=== PATIENT | male | born 1975 | race Caucasian/White ===

== ENCOUNTER 2016-04-27 21:56 | Emergency (ER) | payer MEDICAID ==
[2016-04-27] MEDS ORDERED: KETOROLAC 30 MG/1 ML SDV IM ONE (22:43)
--- NOTE | 2016-04-27 22:45 | EDPHY ---
H & P Stated Complaint: tripped, fell onto bucket; c/o R rib pain Time Seen by Provider: 04/27/16 22:23 HPI/ROS: HPI The patient presents with right-sided chest wall pain which began about an hour and half prior to presentation. He was doing some construction at his house and tripped and fell head 1st onto a 5 gal plastic pocket with his right chest hitting the room and his right arm hitting the ground. He has had progressive, sharp, pleuritic pain ever since which is severe. It is making it hard for him to breathe.. REVIEW OF SYSTEMS Constitutional: No fever, no chills. Eyes: No discharge. ENT: No sore throat. Cardiovascular: No chest pain, no palpitations. Respiratory: No cough, no shortness of breath. Gastrointestinal: No abdominal pain, no vomiting. Genitourinary: No hematuria. Musculoskeletal: No back pain. Skin: No rashes. Neurological: No headache. PMHx: Healthy, no diabetes, no hypertension Soc Hx: Lives with roommate PHYSICAL General Appearance: Alert, uncomfortable appearing Eyes: Pupils equal and round no pallor or injection ENT, Mouth: Mucous membranes moist Respiratory: There are no retractions, lungs are clear to auscultation Chest wall: There is abrasion to the lateral right chest at approximately T4 in the midaxillary Lied, there is tenderness throughout his ribs anteriorly to the midaxillary line, there is no flail chest Cardiovascular: Regular rate and rhythm Gastrointestinal: Abdomen is soft and non-tender, no masses, bowel sounds normal Neurological: A&O, moves all extremities Skin: Warm and dry, no rashes Musculoskeletal: Neck is supple non tender Extremities: symmetrical, full range of motion Psychiatric: Patient is oriented X 3, there is no agitation Source: Patient - Personal History Current Tetanus/Diphtheria Vaccine: Yes Current Tetanus Diphtheria and Acellular Pertussis (TDAP): Yes - Medical/Surgical History Hx Asthma: No Hx Chronic Respiratory Disease: No Hx Diabetes: No Hx Cardiac Disease: No Hx Renal Disease: No Hx Cirrhosis: No Hx Alcoholism: No Hx HIV/AIDS: No Hx Splenectomy or Spleen Trauma: No Other PMH: Kidney stones - Social History Smoking Status: Current every day smoker Constitutional: Initial Vital Signs Temperature (C) 36.5 C 04/27/16 21:57 Heart Rate 105 H 04/27/16 21:57 Respiratory Rate 16 04/27/16 21:57 O2 Sat (%) 95 04/27/16 21:57 O2 Delivery Mode Room Air Allergies/Adverse Reactions: No Known Allergies Allergy (Unverified 08/11/14 02:02) Home Medications: Medication Instructions Recorded Hydrocodone/APAP 5/325 [[place] 1 - 2 tab PO Q6H PRN #15 tab 04/27/16 5/325 (*)] Naproxen 500 mg PO BID #30 tablet 04/27/16 Medical Decision Making - Diagnostics Imaging: Chest x-ray with dedicated right rib views shows fractures of the 7th, 8th, 9th ribs, interpreted by me, radiology interpretation is pending. ED Course/Re-evaluation: The patient was given morphine for his pain in the emergency room with improvement in his symptoms. X-ray reveals several rib fractures without pneumothorax. He will be discharged with pain medication and follow up with his primary care doctor. He is to return to the emergency room if he is worse in any way. Differential Diagnosis: This is a 41-year-old man who presents after a fall earlier tonight, hitting his right side on a bucket. He is now complaining of chest pain and shortness of breath. Differential diagnosis includes pneumothorax, pulmonary contusion, rib fractures. - Data Points Medications Given: Discontinued Medications Hydrocodone Bitart/Acetaminophen ([place] 5/325mg Prepack#6) 1 btl TAKEHOME EDNOW ONE Stop: 04/27/16 23:25 Last Admin: 04/27/16 23:30 Dose: 1 btl Ketorolac Tromethamine (Toradol) 30 mg IM EDNOW ONE Stop: 04/27/16 22:44 Last Admin: 04/27/16 22:59 Dose: 30 mg Morphine Sulfate (Morphine) 6 mg IM EDNOW ONE Stop: 04/27/16 22:44 Last Admin: 04/27/16 22:59 Dose: 6 mg Departure - Departure Disposition: Home, Routine, Self-Care Clinical Impression: Right rib fracture Qualifiers: Encounter type: initial encounter Rib fracture type: multiple ribs Fracture type: closed Qualified Code(s): S22.41XA - Multiple fractures of ribs, right side, initial encounter for closed fracture Condition: Good Instructions: Narcotic-Analgesic/Acetaminophen (By mouth), Rib Fracture (ED) Referrals: [facility] [Outside] - As per Instructions Stand Alone Forms: Work Excuse Prescriptions: Hydrocodone/APAP 5/325 [[place] 5/325 (*)] 1 - 2 tab PO Q6H PRN #15 tab PRN Reason: Pain, Breakthrough Naproxen 500 mg PO BID #30 tablet
[2016-04-27 22:53] VITALS: BP 146/117; PULSE 106; RESP 18; TEMP 99.1; O2SAT 96
[2016-04-27] MEDS ORDERED: HYDROCOD/APAP 5/325 PREPACK#6 BTL TAKEHOME ONE (23:24)
== END 2016-04-27 23:31 | disposition home or self-care (01) ==
DX: S22.41XA Multiple fractures of ribs, right side, initial encounter for closed fracture (principal); F17.200 Nicotine dependence, unspecified, uncomplicated; W01.198A Fall on same level from slipping, tripping and stumbling with subsequent striking against other object, initial encounter; Y92.009 Unspecified place in unspecified non-institutional (private) residence as the place of occurrence of the external cause; Y99.8 Other external cause status; Y93.H3 Activity, building and construction
CPT/HCPCS: J1885

== ENCOUNTER 2017-06-17 19:41 | Emergency (ER) | payer MEDICAID ==
--- NOTE | 2017-06-17 19:45 | EDPHY ---
H & P Time Seen by Provider: 06/17/17 19:45 HPI/ROS: CHIEF COMPLAINT: Right flank pain, history of nephrolithiasis HISTORY OF PRESENT ILLNESS: The patient presents to the ED with several days of intermittent mild right flank pain which has become acutely severe over the past day. The patient denies any hematuria but does report prior history of kidney stone x2. The patient has not required surgical intervention for his stones in the past. The patient denies additional complaints of cough, congestion or chest pain. The patient currently rates his pain as an 8/10. REVIEW OF SYSTEMS: A comprehensive 10 point review of systems is otherwise negative aside from elements mentioned in the history of present illness. Source: Patient Exam Limitations: No limitations - Medical/Surgical History Hx Asthma: No Hx Chronic Respiratory Disease: No Hx Diabetes: No Hx Cardiac Disease: No Hx Renal Disease: No Hx Cirrhosis: No Hx Alcoholism: No Hx HIV/AIDS: No Hx Splenectomy or Spleen Trauma: No Other PMH: Kidney stones - Social History Smoking Status: Current every day smoker - Physical Exam Exam: General Appearance: Alert, mild discomfort Eyes: Pupils equal and round no pallor or injection ENT, Mouth: Mucous membranes moist Respiratory: There are no retractions, lungs are clear to auscultation Cardiovascular: Regular rate and rhythm Gastrointestinal: Right-sided mid abdominal pain Back: Right flank pain Neurological: A&O, normal motor function, normal sensory exam, normal cranial nerves Skin: Warm and dry, no rashes Musculoskeletal: Neck is supple nontender Extremities: symmetrical, full range of motion Constitutional: Initial Vital Signs Heart Rate 84 06/17/17 19:47 Respiratory Rate 18 06/17/17 19:47 Blood Pressure 182/108 H 06/17/17 19:47 O2 Sat (%) 100 06/17/17 19:47 O2 Delivery Mode Room Air Allergies/Adverse Reactions: No Known Allergies Allergy (Unverified 08/11/14 02:02) Home Medications: Medication Instructions Recorded Ondansetron Odt [Zofran Odt] 4 mg PO Q4PRN PRN #20 tab 06/17/17 Tamsulosin HCl [Flomax] 0.4 mg PO DAILY PRN #5 cap 06/17/17 oxyCODONE/APAP 5/325 [Percocet 1 - 2 tab PO Q6-8PRN PRN #20 tab 06/17/17 5/325 (RX)] Medical Decision Making - Diagnostics Imaging Results: Imaging Impressions Abdomen/Pelvis CT 06/17/17 20:27 Impression: 1. Moderate right hydroureteronephrosis secondary to a 4-mm obstructing calculus in the distal right ureterovesical junction. 2. Additional calyceal calculi right kidney. 3. Nonobstructing left nephrolithiasis. Attention: This CT examination is specifically designed to evaluate patients who are clinically suspected of having acute obstructive uropathy. This examination does not use radiographic contrast, and as such, provides only a limited evaluation of the abdomen, pelvis, and retroperitoneum. If there is further clinical suspicion for pathological conditions other than obstructive uropathy, a complete CT evaluation of the abdomen and pelvis utilizing intravenous, oral, and rectal contrast should be considered. Findings and recommendations discussed with Emergency Department physician, Devendra Sena M.D., at 2052 hours, on June 17, 2017. Final report concurs with initial preliminary interpretation. CT abdomen pelvis without IV contrast: Bilateral nephrolithiasis noted, right hydronephrosis secondary to a 3.5 mm distal right calculus. Images reviewed by myself and discussed with radiologist Dr. Castillo. Imaging: Discussed imaging studies w/ banquet server on call Radiologist, I viewed and interpreted images myself Procedures: Procedure: Limited abdominal ultrasound Indication: Right flank pain Findings: Suggestion of mild hydronephrosis noted in the right kidney. No obvious calcification noted. Images stored in ultrasound database. Study performed and interpreted by myself, Dr. Devendra Sena Impression: Mild right hydronephrosis ED Course/Re-evaluation: The patient presents to the ED with right flank pain. The patient reports a prior history of renal colic. The patient had an IV established. I did verify a normal creatinine. The patient received 30 mg of IV Toradol. Bedside ultrasound does suggest hydronephrosis involving the right kidney. The patient was evaluated again at 9:00 p.m.. He is continuing to have mild pain but has had marked improvement of his symptoms. He will be given 1 mg of IV Dilaudid. The patient is also given 0.5 mg of Flomax. The patient will be discharged home with customary renal colic aftercare instructions. He is given a prescription for Zofran, Percocet and Flomax. He is given a urinary strainer and the contact number of our on-call urologist. Differential Diagnosis: Differential diagnosis considered includes nephrolithiasis, ureterolithiasis, pyelonephritis, renal failure, myofascial strain, pancreatitis - Data Points Laboratory Results: Laboratory Results 06/17/17 19:30 06/17/17 19:52 06/17/17 06/17/17 06/17/17 20:55 19:52 19:52 WBC RBC Hgb Hct MCV MCH MCHC RDW Plt Count MPV Neut % (Auto) Lymph % (Auto) [place] % (Auto) Eos % (Auto) Baso % (Auto) Nucleat RBC Rel Count Absolute Neuts (auto) Absolute Lymphs (auto) Absolute Monos (auto) Absolute Eos (auto) Absolute Basos (auto) Absolute Nucleated RBC Immature Gran % Immature Gran # Sodium 140 mEq/L mEq/L (135-145) Potassium 3.6 mEq/L mEq/L (3.5-5.2) Chloride 97 mEq/L mEq/L (97-110) Carbon Dioxide 19 mEq/l L mEq/l (22-31) Anion Gap 24 mEq/L H mEq/L (8-16) BUN 8 mg/dL mg/dL (7-23) Creatinine 0.8 mg/dL mg/dL (0.7-1.3) Estimated GFR > 60 Glucose 135 mg/dL H mg/dL (70-100) Calcium 10.9 mg/dL H mg/dL (8.5-10.4) Phosphorus 1.8 mg/dL L mg/dL (2.5-4.5) Total Bilirubin 0.8 mg/dL mg/dL (0.1-1.4) Conjugated Bilirubin 0.5 mg/dL mg/dL (0.0-0.5) Unconjugated Bilirubin 0.3 mg/dL mg/dL (0.0-1.1) AST 177 IU/L H IU/L (17-59) ALT 123 IU/L H IU/L (21-72) Alkaline Phosphatase 109 IU/L IU/L (38-126) Total Protein 8.5 g/dL H g/dL (6.3-8.2) Albumin 5.4 g/dL H g/dL (3.5-5.0) Lipase 206 IU/L IU/L (23-300) Urine Color PALE YELLOW Urine Appearance HAZY Urine pH 8.0 H (5.0-7.5) Ur Specific [place] 1.008 (1.002-1.030) Urine Protein NEGATIVE (NEGATIVE) Urine Ketones 1+ H (NEGATIVE) Urine Blood 3+ H (NEGATIVE) Urine Nitrate NEGATIVE (NEGATIVE) Urine Bilirubin NEGATIVE (NEGATIVE) Urine Urobilinogen NEGATIVE EU EU (0.2-1.0) Ur Leukocyte Esterase NEGATIVE (NEGATIVE) Urine RBC 50-182 /hpf H /hpf (0-3) Urine WBC 25-50 /hpf H /hpf (0-3) Ur Epithelial Cells TRACE /lpf /lpf (NONE-1+) Urine Mucus 2+ /lpf H /lpf (NONE-1+) Urine Glucose NEGATIVE (NEGATIVE) 06/17/17 19:30 WBC 8.34 10^3/uL 10^3/uL (3.80-9.50) RBC 4.16 10^6/uL L 10^6/uL (4.40-6.38) Hgb 15.7 g/dL g/dL (13.7-17.5) Hct 42.5 % % (40.0-51.0) MCV 102.2 fL H fL (81.5-99.8) MCH 37.7 pg H pg (27.9-34.1) MCHC 36.9 g/dL H g/dL (32.4-36.7) RDW 13.8 % % (11.5-15.2) Plt Count 259 10^3/uL 10^3/uL (150-400) MPV 10.2 fL fL (8.7-11.7) Neut % (Auto) 43.1 % % (39.3-74.2) Lymph % (Auto) 41.2 % % (15.0-45.0) [place] % (Auto) 14.0 % H % (4.5-13.0) Eos % (Auto) 0.5 % L % (0.6-7.6) Baso % (Auto) 0.8 % % (0.3-1.7) Nucleat RBC Rel Count 0.0 % % (0.0-0.2) Absolute Neuts (auto) 3.59 10^3/uL 10^3/uL (1.70-6.50) Absolute Lymphs (auto) 3.44 10^3/uL H 10^3/uL (1.00-3.00) Absolute Monos (auto) 1.17 10^3/uL H 10^3/uL (0.30-0.80) Absolute Eos (auto) 0.04 10^3/uL 10^3/uL (0.03-0.40) Absolute Basos (auto) 0.07 10^3/uL 10^3/uL (0.02-0.10) Absolute Nucleated RBC 0.00 10^3/uL 10^3/uL (0-0.01) Immature Gran % 0.4 % % (0.0-1.1) Immature Gran # 0.03 10^3/uL 10^3/uL (0.00-0.10) Sodium Potassium Chloride Carbon Dioxide Anion Gap BUN Creatinine Estimated GFR Glucose Calcium Phosphorus Total Bilirubin Conjugated Bilirubin Unconjugated Bilirubin AST ALT Alkaline Phosphatase Total Protein Albumin Lipase Urine Color Urine Appearance Urine pH Ur Specific [place] Urine Protein Urine Ketones Urine Blood Urine Nitrate Urine Bilirubin Urine Urobilinogen Ur Leukocyte Esterase Urine RBC Urine WBC Ur Epithelial Cells Urine Mucus Urine Glucose Medications Given: Discontinued Medications Hydromorphone HCl (Dilaudid) 1 mg IVP EDNOW ONE Stop: 06/17/17 20:54 Last Admin: 06/17/17 21:00 Dose: 1 mg Sodium Chloride (Ns) 1,000 mls @ 0 mls/hr IV EDNOW ONE; Wide Open PRN Reason: Protocol Stop: 06/17/17 19:51 Last Admin: 06/17/17 19:54 Dose: 1,000 mls Ketorolac Tromethamine (Toradol) 30 mg IVP EDNOW ONE Stop: 06/17/17 19:51 Last Admin: 06/17/17 19:55 Dose: 30 mg Ondansetron HCl (Zofran Odt 4 Mg Prepack#2) 1 btl TAKEHOME EDNOW ONE Stop: 06/17/17 21:02 Last Admin: 06/17/17 21:09 Dose: 1 btl Oxycodone/Acetaminophen (Percocet 5/325mg Prepack#4) 1 btl TAKEHOME EDNOW ONE Stop: 06/17/17 21:02 Last Admin: 06/17/17 21:10 Dose: 1 btl Tamsulosin HCl (Flomax) 0.4 mg PO EDNOW ONE Stop: 06/17/17 20:55 Last Admin: 06/17/17 21:03 Dose: 0.4 mg Departure - Departure Disposition: Home, Routine, Self-Care Clinical Impression: Calculus of right kidney Condition: Good Instructions: Oxycodone/Acetaminophen (By mouth), Ondansetron (By mouth), Kidney Stones (ED) Additional Instructions: 1. Take Ibuprofen or Motrin 600 mg by mouth three times a day. 2. Percocet as needed for severe pain 3. Flomax as directed 4. Zofran as needed for nausea 5. Strain urine as directed 6. Return to the Emergency Department for intractable pain, fever or vomiting. 7. Followup with the urologist you have been referred to for unimproved symptoms. Referrals: Robina Iniguez MD [Primary Care Provider] - As per Instructions Gracie Dai MD [Medical Doctor] - As per Instructions Prescriptions: Ondansetron Odt [Zofran Odt] 4 mg PO Q4PRN PRN #20 tab PRN Reason: For Nausea oxyCODONE/APAP 5/325 [Percocet 5/325 (RX)] 1 - 2 tab PO Q6-8PRN PRN #20 tab PRN Reason: for pain Tamsulosin HCl [Flomax] 0.4 mg PO DAILY PRN #5 cap PRN Reason: for pain
[2017-06-17] MEDS ORDERED: NS 1,000 ML IV ONE (19:50)
[2017-06-17] MEDS ORDERED: KETOROLAC 30 MG/1 ML SDV IVP ONE (19:50)
[2017-06-17 20:36] LABS: PLATELET COUNT 259 10^3/uL (150-400)
[2017-06-17] MEDS ORDERED: HYDROmorphONE/DILAUDID 2 MG/ML INJ IVP ONE (20:53)
[2017-06-17] MEDS ORDERED: TAMSULOSIN HCL 0.4 MG CAP PO ONE (20:54)
[2017-06-17] MEDS ORDERED: OXYCODONE/APAP 5/325MG PREPACK#4 BTL TAKEHOME ONE (21:01)
[2017-06-17] MEDS ORDERED: ONDANSETRON 4MG PREPACK#2 BTL TAKEHOME ONE (21:01)
[2017-06-17 21:27] VITALS: BP 129/98
== END 2017-06-17 21:30 | disposition home or self-care (01) ==
DX: N20.0 Calculus of kidney (principal); F17.200 Nicotine dependence, unspecified, uncomplicated; E86.9 Volume depletion, unspecified
CPT/HCPCS: 96374; J1170; J1885

== ENCOUNTER 2018-03-24 15:25 | Emergency (ER) | payer MEDICAID ==
[2018-03-24] MEDS ORDERED: MAG HYDROX/AL HYDROX/SIMETH 30 ML UDCUP PO ONE (15:44)
[2018-03-24] MEDS ORDERED: NS 1,000 ML IV ONE (15:44)
[2018-03-24] MEDS ORDERED: LIDOCAINE 2% VISCOUS 15 ML UDCUP PO ONE (15:44)
[2018-03-24] MEDS ORDERED: HYOSCYAMINE SULFATE 0.125 MG TAB PO ONE (15:44)
[2018-03-24] MEDS ORDERED: PROMETHAZINE HCL 25 MG/ML INJ IVP ONE (15:44)
[2018-03-24] MEDS ORDERED: PANTOPRAZOLE SODIUM 40 MG VIAL IVP ONE (15:44)
--- NOTE | 2018-03-24 15:44 | EDPHY ---
H & P Stated Complaint: n/v Time Seen by Provider: 03/24/18 15:37 HPI/ROS: HPI: This is a 43-year-old male who presents with Chief Complaint: Nausea, vomiting Location: GI Quality: Nausea, vomiting Duration: 9 months Signs and Symptoms: no fever, + nausea, + vomiting, no hematemesis, no blood in stool, no abdominal bloating, no diarrhea, no back pain, no urinary symptoms, no testicular/groin pain, no indigestion, no chest pain, no shortness of breath Timing: Acute, intermittent episodes, several times per week Severity: [id number] Context: Patient presents from his primary care office with several times per week of nausea and vomiting over the last 9 months. Patient denies any actual abdominal pain, diarrhea, fever, urinary symptoms, hematemesis, blood in stool. Patient reports that when he drinks liquids or eats food he becomes nauseous and immediately vomits the food. He denies dysphagia, foreign body sensation. After further questioning patient reports that he drinks beer almost daily. Primary care provider gave him Zofran over the last 4-6 weeks which he reports helps is nausea. He normally takes approximately 1-2 times per day. Denies any regular NSAID use. Patient reports that primary care provider already made him a referral to Gastroenterology in 2 weeks. Modifying Factors: Zofran Comment: ROS: A comprehensive 10 system review of systems is otherwise negative aside from elements mentioned in the history of present illness. MEDICAL/SURGICAL/SOCIAL HISTORY: Medical history: Depression, kidney stones Surgical history: Denies Social history: Regular daily alcohol use. Smoker. Family history noncontributory. CONSTITUTIONAL: Well-developed, well-nourished middle-aged white male who has a white beatty, awake and alert, no obvious distress HEENT: Atraumatic and normocephalic, PERRL, EOMI. Nares patent; no rhinorrhea; no nasal mucosal edema. Tympanic membranes clear. Oropharynx clear, no exudate and moist pink mucosa. Airway patent. No lymphadenopathy. No meningismus. Cardiovascular: Normal S1/S2, regular rate, regular rhythm, without murmur rub or gallop. PULMONARY/CHEST: Symmetrical and nontender. Clear to auscultation bilaterally. Good air movement. No accessory muscle usage. ABDOMEN: Soft, nondistended, mild right upper quadrant tenderness, mild epigastric tenderness, no rebound, no guarding, no peritoneal signs, no masses or organomegaly. No CVAT. EXTREMITIES: 2/2 pulses, strength 5/5, no deformities, no clubbing, no cyanosis or edema. NEUROLOGICAL: no focal neuro deficits. GCS 15. SKIN: Warm and dry, no erythema. no rash. Good capillary refill. Source: Patient Exam Limitations: No limitations - Personal History Current Tetanus Diphtheria and Acellular Pertussis (TDAP): Unsure - Medical/Surgical History Hx Asthma: No Hx Chronic Respiratory Disease: No Hx Diabetes: No Hx Cardiac Disease: No Hx Renal Disease: No Hx Cirrhosis: No Hx Alcoholism: No Hx HIV/AIDS: No Hx Splenectomy or Spleen Trauma: No Other PMH: Kidney stones - Social History Smoking Status: Current every day smoker Constitutional: Initial Vital Signs Temperature (C) 36.5 C 03/24/18 15:28 Heart Rate 93 03/24/18 15:28 Respiratory Rate 17 03/24/18 15:28 Blood Pressure 166/106 H 03/24/18 15:28 O2 Sat (%) 98 03/24/18 15:28 O2 Delivery Mode Room Air Allergies/Adverse Reactions: No Known Allergies Allergy (Verified 03/24/18 15:28) Home Medications: Medication Instructions Recorded Ondansetron Odt [Zofran Odt] 4 mg PO Q4PRN PRN #20 tab 01/22/18 Pantoprazole Sodium [Protonix 40mg 40 mg PO BID #30 tab 03/24/18 (*)] Sertraline HCl 03/24/18 Medical Decision Making - Diagnostics Imaging Results: Imaging Impressions Abdomen Ultrasound 03/24/18 15:45 Impression: 1. Normal appearance of the gallbladder, with no cholelithiasis, cholecystitis, or bile duct dilatation. 2. Moderate hepatic steatosis. Findings were discussed with Gill Mike PA-C at 16:48, on 03/24/2018. ED Course/Re-evaluation: Vital signs reviewed upon arrival in show elevated blood pressure. IV access, laboratory studies, abdominal ultrasound ordered Patient given 1 L normal saline, IV Protonix 40 mg, IV promethazine 12.5 mg and GI cocktail 1629: Labs reviewed. Macrocytosis noted but no anemia. This is consistent with daily alcohol use. Mildly elevated AST and alk-phos. 1645: Called by Dr. Early who advised that ultrasound per radiologist shows fatty liver, normal gallbladder and pancreas. No common bile duct dilatation. No obstructive uropathy. 1700: Reassessed patient who reports moderate relief of symptoms. Eating and drinking without difficulty prior to discharge in the emergency room. Plan is to discharge patient home with Protonix with gastroenterology follow-up for EGD and suspected alcoholic gastritis versus peptic ulcer disease. This patient was seen under the supervision of my secondary supervising physician. I evaluated care for this patient with attending. Discussed this patient with Dr. Liz who did not see the patient. Differential Diagnosis: Differential diagnosis includes but is not limited to gallbladder disease, pancreatitis, gastritis, peptic ulcer disease. - Data Points Laboratory Results: Laboratory Results 03/24/18 15:45 03/24/18 15:45 03/24/18 03/24/18 15:45 15:45 WBC 7.35 10^3/uL 10^3/uL (3.80-9.50) RBC 3.71 10^6/uL L 10^6/uL (4.40-6.38) Hgb 13.9 g/dL g/dL (13.7-17.5) Hct 40.0 % % (40.0-51.0) MCV 107.8 fL H fL (81.5-99.8) MCH 37.5 pg H pg (27.9-34.1) MCHC 34.8 g/dL g/dL (32.4-36.7) RDW 16.6 % H % (11.5-15.2) Plt Count 218 10^3/uL 10^3/uL (150-400) MPV 9.5 fL fL (8.7-11.7) Neut % (Auto) 73.3 % % (39.3-74.2) Lymph % (Auto) 13.2 % L % (15.0-45.0) [place] % (Auto) 12.0 % % (4.5-13.0) Eos % (Auto) 0.1 % L % (0.6-7.6) Baso % (Auto) 0.7 % % (0.3-1.7) Nucleat RBC Rel Count 0.0 % % (0.0-0.2) Absolute Neuts (auto) 5.39 10^3/uL 10^3/uL (1.70-6.50) Absolute Lymphs (auto) 0.97 10^3/uL L 10^3/uL (1.00-3.00) Absolute Monos (auto) 0.88 10^3/uL H 10^3/uL (0.30-0.80) Absolute Eos (auto) 0.01 10^3/uL L 10^3/uL (0.03-0.40) Absolute Basos (auto) 0.05 10^3/uL 10^3/uL (0.02-0.10) Absolute Nucleated RBC 0.00 10^3/uL 10^3/uL (0-0.01) Immature Gran % 0.7 % % (0.0-1.1) Immature Gran # 0.05 10^3/uL 10^3/uL (0.00-0.10) Platelet Estimate ADEQUATE (ADEQ) Oval Macrocytes 2+ H Sodium 138 mEq/L mEq/L (135-145) Potassium 3.7 mEq/L mEq/L (3.5-5.2) Chloride 102 mEq/L mEq/L (97-110) Carbon Dioxide 20 mEq/l L mEq/l (22-31) Anion Gap 16 mEq/L H mEq/L (6-14) BUN 7 mg/dL mg/dL (7-23) Creatinine 0.6 mg/dL L mg/dL (0.7-1.3) Estimated GFR > 60 Glucose 131 mg/dL H mg/dL (70-100) Calcium 9.7 mg/dL mg/dL (8.5-10.4) Total Bilirubin 1.4 mg/dL mg/dL (0.1-1.4) Conjugated Bilirubin 0.5 mg/dL mg/dL (0.0-0.5) Unconjugated Bilirubin 0.9 mg/dL mg/dL (0.0-1.1) AST 127 IU/L H IU/L (17-59) ALT 64 IU/L IU/L (21-72) Alkaline Phosphatase 155 IU/L H IU/L (38-126) Total Protein 7.7 g/dL g/dL (6.3-8.2) Albumin 4.9 g/dL g/dL (3.5-5.0) Lipase 231 IU/L IU/L (23-300) Medications Given: Discontinued Medications Al Hydroxide/Mg Hydroxide (Maalox Susp) 30 ml PO ONCE ONE Stop: 03/24/18 15:45 Last Admin: 03/24/18 15:55 Dose: 30 ml Hyoscyamine Sulfate (Levsin, Hyomax-Sl) 0.25 mg PO ONCE ONE Stop: 03/24/18 15:45 Last Admin: 03/24/18 15:56 Dose: 0.25 mg Sodium Chloride (Ns) 1,000 mls @ 0 mls/hr IV EDNOW ONE; Wide Open PRN Reason: Protocol Stop: 03/24/18 15:45 Last Admin: 03/24/18 15:48 Dose: 1,000 mls Lidocaine (Lidocaine 2% Viscous) 15 ml PO ONCE ONE Stop: 03/24/18 15:45 Last Admin: 03/24/18 15:55 Dose: 15 ml Pantoprazole Sodium (Protonix) 40 mg IVP ONCE ONE Stop: 03/24/18 15:45 Last Admin: 03/24/18 16:00 Dose: 40 mg Promethazine HCl (Phenergan) 12.5 mg IVP EDNOW ONE Stop: 03/24/18 15:45 Last Admin: 03/24/18 16:01 Dose: 12.5 mg Departure - Departure Disposition: Home, Routine, Self-Care Clinical Impression: Fatty liver, alcoholic Gastritis without bleeding Qualifiers: Gastritis type: alcoholic Chronicity: chronic Qualified Code(s): K29.20 - Alcoholic gastritis without bleeding Condition: Good Instructions: Non-Alcoholic Fatty Liver Disease (ED) Additional Instructions: Consume a minimum of 8-10 glasses of water or electrolyte fluid replacement drinks that include Gatorade, Powerade, Pedialyte. Eat a bland diet for the next 48 hours and then slowly advance as tolerated. Take Zofran 1 tab every 4-6 hours as needed for nausea, vomiting. Take Protonix 40 mg twice daily x1 week and then every morning thereafter. Please refrain from drinking alcohol as this can worsen your symptoms. Do not use NSAIDs which include ibuprofen, Motrin, Aleve, Advil. Follow-up with Gastroenterology in the next 5-7 days to determine if you are a candidate for EGD outpatient. Referrals: Landry Neal MD [Primary Care Provider] - As per Instructions Tamica Reynolds MD [Medical Doctor] - As per Instructions Prescriptions: Pantoprazole Sodium [Protonix 40mg (*)] 40 mg PO BID #30 tab
[2018-03-24 15:56] LABS: PLATELET COUNT 218 10^3/uL (150-400)
[2018-03-24 17:34] VITALS: BP 141/94
== END 2018-03-24 17:33 | disposition home or self-care (01) ==
DX: K29.20 Alcoholic gastritis without bleeding (principal); K70.0 Alcoholic fatty liver; F10.10 Alcohol abuse, uncomplicated
CPT/HCPCS: 96374; J2550

== ENCOUNTER 2018-06-06 10:17 | Emergency (ER) | payer MEDICAID ==
[2018-06-06 10:23] VITALS: BP 146/101
[2018-06-06] MEDS ORDERED: PROPARACAINE 0.5% 15 ML OPHT DROP ONE (10:36)
[2018-06-06] MEDS ORDERED: FLUORESCEIN SODIUM 1 MG STRIP OP ONE (10:36)
--- NOTE | 2018-06-06 10:51 | EDPHY ---
HPI/HX/ROS/PE/MDM Narrative: CHIEF COMPLAINT: Left eye pain HPI: This patient is a 43 year old male who is generally healthy. He complains of left eye pain secondary to an accidental injury this morning. He woke in his RV , and forgot he was sleeping in a lofted area. He sat up suddenly and struck his nose and eye on the edge of a vent fan above him. He saw stars briefly following this event. He feels he may have scratched his eyeball. His vision is blurred on the left. He denies diplopia or any blind spots. He denies any other trauma and has no further complaints. REVIEW OF SYSTEMS: A comprehensive 10 system review of systems is otherwise negative aside from elements mentioned in the history of present illness and medical decision making. PMH: Kidney stones. SOCIAL HISTORY: Single. Lives in [place]. Works as a [employer]. PHYSICAL EXAM: General:Patient is alert, in no acute distress. ENT: Left eye: Slit lamp exam shows corneal abrasion at 12 o'clock position. No evidence of penetrating globe injury. Pupil round and reactive to light. EOMI. Right eye: Normal appearance. ENT inspection normal. Skin: Normal color. No rash. Warm and dry. Extremities: Normal appearance. Full range of motion. Neuro: Oriented x3. Normal motor function. Normal sensory function. ED Course: This 43 y/o male presents with left eye pain after striking his eye on the edge of a vent fan earlier today. On exam with SLIT lamp, he has a corneal abrasion at 12 o'clock position. Plan to discharge home in good condition with prescription for gentamicin drops, proparacaine 0.05% drops, and [place] for pain control. Referral to ophthalmology provided for symptoms persisting more than 48 hours. The patient is comfortable with this plan. General Time Seen by Provider: 06/06/18 10:30 Initial Vital Signs: Initial Vital Signs Temperature (C) 36.8 C 06/06/18 10:21 Heart Rate 84 06/06/18 10:21 Respiratory Rate 16 06/06/18 10:21 Blood Pressure 146/101 H 06/06/18 10:21 O2 Sat (%) 98 06/06/18 10:21 O2 Delivery Mode Room Air Allergies/Adverse Reactions: No Known Allergies Allergy (Verified 06/06/18 10:20) Home Medications: Medication Instructions Recorded Ondansetron Odt [Zofran Odt] 4 mg PO Q4PRN PRN #20 tab 01/22/18 Gentamicin 0.3% [Gentak 0.3% Opht 1 - 2 drop OP Q4 5 Days opht.btl 06/06/18 Drops] Hydrocodone/APAP 5/325 [[place] 1 - 2 tab PO Q6H PRN #7 tab 06/06/18 5/325 (*)] Departure - Departure Disposition: Home, Routine, Self-Care Clinical Impression: Corneal abrasion Qualifiers: Encounter type: initial encounter Laterality: left Qualified Code(s): S05.02XA - Injury of conjunctiva and corneal abrasion without foreign body, left eye, initial encounter Condition: Good Instructions: Corneal Abrasion (ED) Additional Instructions: 1. Use Gentamicin drops as prescribed. 2. You may use the dilute proparacaine drops every one hour as needed for pain, up to 24 hours. 3. Please follow up with ophthalmology for symptoms persisting more than 48 hours. 4. Return to the emergency department for worsening pain, changes in vision or blind spots, or other worsening of condition. 5. You may take [place] as prescribed as needed for severe pain. Referrals: Landry Neal MD [Primary Care Provider] - As per Instructions Siena Scott MD [Medical Doctor] - As per Instructions Prescriptions: Gentamicin 0.3% [Gentak 0.3% Opht Drops] 1 - 2 drop OP Q4 5 Days opht.btl Hydrocodone/APAP 5/325 [[place] 5/325 (*)] 1 - 2 tab PO Q6H PRN #7 tab PRN Reason: Pain, Severe Report Scribed for: Earl Liz Report Scribed by: Dottie Moore Date of Report: 06/06/18 Time of Report: 10:51 Physician Review and Approval Statement: Portions of this note were transcribed by an ED scribe. I personally performed the history, physical exam, and medical decision making; and confirm the accuracy of the information in the transcribed note.
== END 2018-06-06 11:15 | disposition home or self-care (01) ==
DX: S05.02XA Injury of conjunctiva and corneal abrasion without foreign body, left eye, initial encounter (principal); W22.8XXA Striking against or struck by other objects, initial encounter; Y92.818 Other transport vehicle as the place of occurrence of the external cause